=== PATIENT | female | born 1965 | race African-American/Black ===

== ENCOUNTER 2016-06-16 22:16 | Emergency (ER) | payer MEDICARE ==
[~2016-06-16] VITALS: Ht 162.6 cm; Wt 104.5 kg
[2016-06-16] MEDS ORDERED: cloNIDine 0.1 MG (CATAPRES) TAB PO ONE (23:25)
[2016-06-17] MEDS ORDERED: HYDROmorphone 1 MG/ML (DILAUDID) SYRINGE IM ONE (00:25)
[2016-06-17] MEDS ORDERED: ONDANSETRON 4 MG (ZOFRAN) ORAL DISSOLVE TAB PO ONE ×2 (01:10→02:05)
[2016-06-17] MEDS ORDERED: PROMETHAZINE 25 MG/ML (PHENERGAN) 1 ML VIAL IM ONE (01:30)
[2016-06-17] MEDS ORDERED: METOCLOPRAMIDE 10 MG/2 ML (REGLAN) VIAL IM ONE (02:35)
[2016-06-17 02:55] VITALS: BP 146/90
== END 2016-06-17 02:57 | disposition home or self-care (01) ==
LOC: ED 22:19
DX: T42.4X6A Underdosing of benzodiazepines, initial encounter (principal); T50.2X6A Underdosing of carbonic-anhydrase inhibitors, benzothiadiazides and other diuretics, initial encounter; I10 Essential (primary) hypertension; R51 Headache; M17.0 Bilateral primary osteoarthritis of knee; Z87.891 Personal history of nicotine dependence
CPT/HCPCS: 96372; 99282; A9270; J1170; J2550; J2765; 99283

== ENCOUNTER 2016-08-13 08:31 | Emergency (ER) | payer MEDICARE ==
[~2016-08-13] VITALS: Ht 162.6 cm; Wt 102.0 kg
[2016-08-13] MEDS ORDERED: DEXAMETHASONE 4 MG/ML (DECADRON) 5ml VIAL IM ONE (08:55)
[2016-08-13] MEDS ORDERED: ALBUTEROL/IPRATROPIUM 3MG-0.5MG/3ML (DUONEB) NEB VIAL INH ONE (08:55)
--- NOTE | 2016-08-13 09:09 | NUR ---
pt states has no idea what meds she takes. whatever is on our list is correct per pt
[2016-08-13 10:32] VITALS: BP 159/95
== END 2016-08-13 10:34 | disposition home or self-care (01) ==
LOC: ED 08:32
DX: J45.901 Unspecified asthma with (acute) exacerbation (principal)
CPT/HCPCS: 93005; 94640; 96372; 99284; J1100; 99283

== ENCOUNTER 2016-08-31 20:44 | Emergency (ER) | payer MEDICARE ==
[~2016-08-31] VITALS: Ht 162.6 cm; Wt 104.5 kg
[~2016-08-31 20:44] MED LIST: AC325T PO; ASP81CT PO; CALC300T10 PO; CPR500T PO; DOCU100C8 PO; ESOM20CA PO; FLUT16SP NSEACH; FRSM20T PO; HCT25T PO; HYDR1POW18 MC; LORA-404 PO; LORA0.5T PO; LORA1TAB PO; LOSA100T8 PO; MAG30ORA PO; MAGN400O7 PO; METO50TA7 PO; NTR.4SL SL; OMEP20TA PO; OMEP20TA33 PO; POLY17PO2 PO; PRED20TA PO; TRM50T PO; bp med
[2016-08-31] MEDS ORDERED: LORazepam 2 MG/ML (ATIVAN) 1 ML VIAL IV ONE (21:20)
[2016-08-31] MEDS ORDERED: SODIUM CHLORIDE FLUSH 3 ML SYR IV PRN (21:20)
[2016-08-31] MEDS ORDERED: SODIUM CHLORIDE FLUSH 10 ML SYR IV PRN (21:20)
[2016-08-31] MEDS ORDERED: ONDANSETRON 2 MG/ML (Z0FRAN) 2 ML VIAL IV ONE ×2 (21:20→22:25)
[2016-08-31 21:32] LABS: BASOPHILS % (AUTO) 0 % (0-2); EOSINOPHILS # (AUTO) 0.5 10^3uL; EOSINOPHILS % (AUTO) 5 % (0-4); LYMPHOCYTES # (AUTO) 3.5 X10^3; MEAN CORPUSCULAR HEMOGLOBIN 28.6 PG (26.0-34.0); MEAN CORPUSCULAR HGB CONC 32.7 g/dL (31.0-37.0); MEAN CORPUSCULAR VOLUME 88 FL (80-100); MEAN PLATELET VOLUME 10.5 FL (6.0-9.5); MONOCYTES # (AUTO) 0.7 X10^3; MONOCYTES % (AUTO) 7 % (3-11); NEUTROPHILS # (AUTO) 5.3 X10^3; NEUTROPHILS % (AUTO) 53 % (51-67); PLATELET COUNT 267 10^3uL (150-450); WHITE BLOOD COUNT 10.11 10^3uL (4.0-11.0)
[2016-08-31 21:41] LABS: ALBUMIN 4.3 g/dL (3.4-5.0); ALKALINE PHOSPHATASE 90 U/L (38-126); ANION GAP 16.4 MEQ/L (3-15); BUN/CREATININE RATIO 18 (10-20); TOTAL PROTEIN 7.8 g/dL (6.4-8.5)
--- NOTE | 2016-08-31 22:19 | NUR ---
Pt complaints of some restless legs, Dr. Warren was notified, RN went back to notify pt that Dr. Warren feels like the Ativan that pt was given should help with her legs.
[2016-08-31] MEDS ORDERED: KETOROLAC 30 MG/ML (TORADOL) 1 ML VIAL IV ONE (22:25)
[2016-08-31] MEDS ORDERED: HYDROmorphone 1 MG/ML (DILAUDID) SYRINGE IV ONE (22:25)
[2016-08-31] MEDS ORDERED: PROMETHAZINE 25 MG/ML (PHENERGAN) 1 ML VIAL IM ONE (23:50)
[2016-09-01] MEDS ORDERED: LORA-404 PO (01:22)
[2016-09-01] MEDS ORDERED: ED- LORAZEPAM 0.5 MG (ATIVAN) 6 TABLETS/BTL PO ONE (01:25)
[2016-09-01 02:03] VITALS: BP 135/79
--- NOTE | 2016-09-01 07:44 | Diagnostic Imaging Report ---
PROCEDURE: CT angiography of the chest with contrast. TECHNIQUE: Multiple contiguous axial images were obtained through the chest after uneventful bolus administration of intravenous contrast. Reconstructed CTA MIP acquisitions were also performed. INDICATION: Chest pressure and arm pain. COMPARISON: 05/12/2016 FINDINGS: Vasculature: No pulmonary emboli. No CT evidence of pulmonary hypertension or right ventricular strain. Thoracic aorta is normal in caliber. No aortic dissection or pseudoaneurysm. Heart and mediastinum: Visualized thyroid is normal. No supraclavicular, axillary, or intra-thoracic lymphadenopathy. The heart is normal in size without pericardial effusion. Small hiatus hernia. Pleura: No pleural effusion or pneumothorax. Lungs and airway: No endoluminal lesion in the trachea or central bronchi. No pulmonary mass, nodule or consolidation. Patchy subsegmental atelectasis in the left lung base. Upper abdomen: Allowing for the phase of contrast, no acute abnormality in the upper abdomen is seen. Musculoskeletal: No concerning osseous lesion. IMPRESSION: 1. No acute cardiopulmonary process. Specifically, no pulmonary emboli or acute aortic syndrome. 2. No pulmonic consolidation or mass. 3. No intrathoracic lymphadenopathy. 4. Findings are in agreement with the preliminary report. Dictated by: Dictated on workstation # [id number]
--- NOTE | 2016-09-01 07:48 | Diagnostic Imaging Report ---
CHEST 1 VIEW, AP/PA ONLY* Indication: Chest pain. Comparison: CTA chest performed subsequently and portable chest of 05/12/2016. Findings: No focal airspace disease in the visualized lungs. Please note that the posterior lower lobes are poorly evaluated by portable radiography. No pleural effusion or pneumothorax. Normal cardiomediastinal silhouette. Impression: No acute cardiopulmonary process by portable radiography. Dictated by: Dictated on workstation # [id number]
== END 2016-09-01 02:02 | disposition home or self-care (01) ==
LOC: ED 20:45
DX: M94.0 Chondrocostal junction syndrome [Tietze] (principal); R07.89 Other chest pain; F41.9 Anxiety disorder, unspecified
CPT/HCPCS: 36415; 71010; 71275; 80053; 84484; 85025; 85379; 93005; 96361; 96372; 96374; 96375; 96376; 99285; A9270; J1170; J1885; J2060; J2405; J2550; J7030; Q9967; 93010

== ENCOUNTER 2016-09-04 06:28 | Emergency (ER) | payer MEDICARE ==
[~2016-09-04] VITALS: Ht 162.6 cm; Wt 109.0 kg
[~2016-09-04 06:28] MED LIST changes: -ALBU8.5H2 IH; -DOXY100C2 PO; -PRD50T PO
[2016-09-04] MEDS ORDERED: methylPREDNISolone 125 MG (Solu-MEDROL) VIAL IV STA (06:50)
[2016-09-04] MEDS ORDERED: ALBUTEROL/IPRATROPIUM 3MG-0.5MG/3ML (DUONEB) NEB VIAL INH ONE (06:50)
[2016-09-04] MEDS ORDERED: ALBU8.5H2 IH (06:52)
[2016-09-04] MEDS: SODIUM CHLORIDE FLUSH 10 ML SYR IV PRN ×2 (06:57→07:47)
--- NOTE | 2016-09-04 07:03 | NUR ---
REPORT TO KATIA Warren AND SHE ACCEPTED CARE
[2016-09-04] MEDS ORDERED: KETOROLAC 30 MG/ML (TORADOL) 1 ML VIAL IV ONE (07:05)
--- NOTE | 2016-09-04 07:39 | NUR ---
PT [facility]. CL
[2016-09-04] MEDS ORDERED: ALBUTEROL 0.083% NEB SOLUTION 2.5 MG/3 ML VIAL INH ONE (07:40)
--- NOTE | 2016-09-04 07:41 | Diagnostic Imaging Report ---
INDICATION: Cough. Comparison with 08/31/2016. FINDINGS: Examination of the chest in the PA and lateral projections fails to reveal evidence of active parenchymal pathology or pleural effusion. The cardiac silhouette is normal. IMPRESSION: Negative chest. No significant change since previous exam. Dictated by: Dictated on workstation # [id number]
[2016-09-04] MEDS ORDERED: DOXY100C2 PO (08:21)
[2016-09-04] MEDS ORDERED: PRD50T PO (08:21)
[2016-09-04 20:36] VITALS: BP 154/80
== END 2016-09-04 08:48 | disposition home or self-care (01) ==
LOC: EDUNIT# 06:28 → ED 06:31
DX: J20.9 Acute bronchitis, unspecified (principal); J44.1 Chronic obstructive pulmonary disease with (acute) exacerbation
CPT/HCPCS: 71020; 94640; 96374; 96375; 99283; J1885; J2930; J7613

== ENCOUNTER → 2016-09-04 | Outpatient (CLI) | payer MEDICARE ==
[~2016-09-04] MED LIST changes: +ALBU8.5H2 IH; +DOXY100C2 PO; +PRD50T PO
== END ==
LOC: EMS 06:15
PROVIDERS: ATTEND Emergency Medicine
DX: R06.00 Dyspnea, unspecified (principal); J45.909 Unspecified asthma, uncomplicated

== ENCOUNTER 2016-10-07 17:40 | Emergency (ER) | payer MEDICARE ==
[~2016-10-07] VITALS: Ht 162.6 cm; Wt 108.0 kg
[~2016-10-07 17:40] MED LIST changes: +ALBU8.5H2 IH; +DOXY100C2 PO; +PRD50T PO
--- OUTSIDE RECORDS SUMMARY | 2016-10-07 17:45 | XMS REPORT | Continuity of Care Document ---
Author Author [facility] Address Unknown Phone Unavailable Support Name Relationship Address Phone ARVEN HUNT MD Caregiver [address] [place], [place] [address] JACQUELIN ORTIZ MD Caregiver [address] [place] [address] HILARY HARRIS Next Of Kin [address] [place] [address] Insurance Providers Payer Name Policy Number Subscriber Name Relationship Medicare A And B [id number] Paco Cardoso 16 Self / Same As Patient Advance Directives Directive Response Recorded Date/Time Advanced Directives Yes 09/04/16 6:33am Type Durable Power of [employer] Developer 09/04/16 6:33am Chief Complaint and Reason for Visit Chief Complaint Respiratory Complaint Reason for Visit Chronic obstructive pulmonary disease Problems Active Problems Medical Problem Onset Date Status Anxiety ~03/12/2016 Resolved Asthma Unknown Resolved Bronchitis Unknown Resolved Chest pain ~03/12/2016 Resolved Chronic obstructive pulmonary disease 09/04/2016 Acute Costochondritis, acute ~08/31/2016 Acute Degenerative arthritis of knee, bilateral ~06/16/2016 Acute GERD (gastroesophageal reflux disease) ~03/12/2016 Chronic HTN (hypertension) ~01/23/2016 Resolved Headache ~06/16/2016 Acute Hx of medication noncompliance Unknown Chronic Hypertension Unknown Acute Non compliance w medication regimen Unknown Chronic Medications Current Home Medications Medication Dose Units Route Directions Days/Qty Instructions Start Date Hydrochlorothiazide 25 Mg 25 Mg ORAL Daily 30 12/09/15 Losartan Potassium (Cozaar) 100 Mg 100 Mg ORAL Daily 30 12/09/15 Nitroglycerin (Nitrostat) 0.4 Mg 0.4 Mg SUBLINGUAL As Needed as needed for Chest Pain 15 12/09/15 Lorazepam 0.5 Mg 0.5 Mg ORAL Bedtime 01/23/16 Omeprazole Magnesium 20 Mg 20 Mg ORAL Daily 30 03/12/16 Lorazepam 0.5 Mg 0.5 Mg ORAL Every 8HRS for Anxiety 15 06/17/16 Albuterol Sulfate 8.5 Gm 8.5 Gm RESPIRATORY (INHALATION) As Needed 09/04/16 Doxycycline Hyclate 100 Mg 100 Mg ORAL Twice A Day 14 09/04/16 Prednisone 50 Mg 50 Mg ORAL Daily 4 09/04/16 Past Home Medications Medication Directions Ordered Status [Bp Med] , Unknown Dose Daily 12/08/15 Discontinued Furosemide 20 Mg Tab, 20 Mg Oral Twice A Day 12/08/15 Discontinued Lorazepam 1 Mg Tablet, 1 Mg Oral Bedtime 12/08/15 Discontinued Hydrochlorothiazide 25 Mg Tablet, 25 Mg Oral Daily 12/09/15 Discontinued Esomeprazole Magnesium 20 Mg Capsule., 20 Mg Oral Daily@0700 12/09/15 Discontinued Losartan Potassium (Cozaar) 100 Mg Tablet, 100 Mg Oral Daily 12/09/15 Discontinued Tramadol Hcl (Ultram) 50 Mg Tablet, 50 Mg Oral Three Times A Day 12/09/15 Discontinued Aspirin 81 Mg Tab.chew, 81 Mg Oral Daily 12/09/15 Discontinued Fluticasone Propionate 16 Gm Naspr, 1 [place] Each Nostril Bedtime 12/09/15 Discontinued Aspirin 81 Mg Tab.chew, 81 Mg Oral Daily 12/09/15 Discontinued Metoprolol Succinate 50 Mg Tab, 50 Mg Oral Daily 12/09/15 Discontinued Acetaminophen (Tylenol) 325 Mg Tablet, 650 Mg Oral Every 6 Hours as needed for Pain 12/09/15 Discontinued Calcium Carbonate 300 Mg Tab.chew, 600 Mg Oral Every 1 Hour as needed for Dyspepsia 12/09/15 Discontinued Mag Hydrox/Al Hydrox/Simeth 30 Ml Oral.susp, 30 Ml Oral Every 6 Hours as needed for Dyspepsia 12/09/15 Discontinued Docusate Sodium 100 Mg Capsule, 100 Mg Oral Twice A Day as needed for Constipation 12/09/15 Discontinued Magnesium Hydroxide 400 Mg/5 Ml Oral.susp, 30 Ml Oral Daily as needed for Constipation 12/09/15 Discontinued Polyethylene Glycol 3350 17 Gm Powd.pack, 17 Gm Oral Daily as needed for Constipation 12/09/15 Discontinued Omeprazole 20 Mg Tablet., 20 Mg Oral Daily 12/09/15 Discontinued Lorazepam 0.5 Mg Tablet, 0.5 Mg Oral As Directed 01/23/16 Discontinued Hydrochlorothiazide 25 Gm Powder, 25 Gm Miscell Once 01/23/16 Discontinued Losartan Potassium (Cozaar) 100 Mg Tablet, 100 Mg Oral As Directed 01/23/16 Discontinued Losartan Potassium (Cozaar) 100 Mg Tablet, 100 Mg Oral Daily 03/12/16 Discontinued Hydrochlorothiazide 25 Mg Tablet, 25 Mg Oral Daily 03/12/16 Discontinued Lorazepam 0.5 Mg Tablet, 0.5 Mg Oral Bedtime 03/12/16 Discontinued Ciprofloxacin 500 Mg Tablet, 500 Mg Oral Twice A Day for Infection 05/13/16 Discontinued Prednisone 20 Mg Tablet, 20 Mg Oral As Directed 05/13/16 Discontinued Losartan Potassium (Cozaar) 100 Mg Tablet, 100 Mg Oral Daily 06/17/16 Discontinued Omeprazole 20 Mg Tablet.dr, 20 Mg Oral Daily 06/17/16 Discontinued Prednisone 20 Mg Tablet, 20 Mg Oral Twice A Day 08/13/16 Discontinued Losartan Potassium (Cozaar) 100 Mg Tablet, 100 Mg Oral Daily 08/13/16 Discontinued Lorazepam 0.5 Mg Tablet, 0.5 Mg Oral Every 8HRS for Anxiety 09/01/16 Discontinued Social History Social History Problem Response Recorded Date/Time Onset Date Status Exposure to occupational hazards No 12/08/2015 10:29pm Query Response Start Date Stop Date Smoking Status Former smoker Hospital Discharge Instructions No hospital discharge instructions. Plan of Care Discharge Date 09/04/16 8:48am Disposition 01 HOME OR SELF-CARE Condition at Discharge Stable Instructions/Education Provided Exacerbation of COPD (DC) Prescriptions See Medication Section Referrals SHAYNA CARTER MD - Additional Instructions/Education Drink plenty of fluids, rest. Take your medications as previously prescribed. You may repeat your nebulized treatment [id number] if needed but do not take more than two in a row. Return if symptoms worsen, if new symptoms develop, or for any other concerns. Your prescriptions were sent to [facility]. Some of your test results may not be complete prior to your leaving the Emergency Department. The Emergency Department is not authorized to give test results over the phone. Please contact the doctor's office listed in this packet of information for your final results. Follow up with your primary care physician or return to the Emergency Department for worsening or worrisome symptoms. * Emergency Department phone number: [phone], x [phone]* MEDICAL RECORD If you need copies of your X-rays, call [phone]. If you need copies of your medical record, including lab results, a signed authorization for release of records will be required. A telephone call for release of Health Information is not allowed. BILLING Billing can sometimes be confusing and frustrating. To help avoid confusion in the future, please take a moment to acquaint yourself with the billing parties for services. [employer] Emergency Room Services [facility] Physician Services [facility] X-rays [facility] Patients will receive bills for services from the appropriate provider. If you have any questions about your [facility] bill, our staff will be happy to assist you. Please call [phone], and ask for the billing department. THANK YOU for choosing [facility] as your emergency care provider! Care Plan and Goals ~~Discharge Care Plan~~ Problem: Breathing difficulty Goal: Able to breathe without shortness of air and perform usual activities. Instructions: Take medication(s) as directed. Follow physician discharge instructions. Follow up with primary care physician as directed. Use inhalers as needed. Functional Status No functional status results. Allergies, Adverse Reactions, Alerts Allergen Type Severity Reaction Status Last Updated Hydrocodone Allergy Unknown Active 09/04/16 Oxycodone Allergy Unknown Active 09/04/16 Meperidine Allergy Unknown Active 09/04/16 Immunizations No immunization records. Vital Signs Acute Vital Signs Vital Response Date/Time Temperature (Fahrenheit) 98 09/04/2016 6:33am Pulse 82 bpm 09/04/2016 8:36pm Respirations 16 09/04/2016 8:36pm Height 5 ft 4 in Weight 240 lb Body Mass Index 41.0 kg/m^2 Results Pending Laboratory Results Test Name Collection Date/Time Procedures Procedure Status Date Provider(s) ELECTROCARDIOGRAM TRACING Completed 03/28/17 AIRWAY INHALATION TREATMENT Completed 08/13/16 THER/PROPH/DIAG INJ SC/IM Completed 08/13/16 EMERGENCY DEPT VISIT Completed 08/13/16 Completed 08/13/16 Encounters Encounter Location Arrival/Admit Date Discharge/Depart Date Attending Provider Departed Emergency Room [facility] 09/04/16 6:31am 09/04/16 8:48am JACQUELIN ORTIZ MD Registered Clinic [facility] 09/04/16 6:15am RAVEN HUNT MD Departed Emergency Room [facility] 08/31/16 8:45pm 09/01/16 2:02am PRADEEP HERNÁNDEZ MD Departed Emergency Room [facility] 08/13/16 8:32am 08/13/16 10:34am CHELLY JACINTO MD Recent Diagnosis
--- NOTE | 2016-10-07 18:00 | NUR ---
Patient report has now been received from Triage Nurse. Pt care assumed by this nurse.
[2016-10-07] MEDS ORDERED: ALBUTEROL/IPRATROPIUM 3MG-0.5MG/3ML (DUONEB) NEB VIAL INH ONE (18:15)
--- NOTE | 2016-10-07 18:30 | NUR ---
Respiratiory Therapist here to do Nebulizer treatment.
[2016-10-07] MEDS ORDERED: HCT25T PO (18:47)
[2016-10-07] MEDS ORDERED: LORA0.5T PO (18:47)
[2016-10-07] MEDS ORDERED: LOSA100T8 PO (18:47)
[2016-10-07] MEDS ORDERED: ALBU8.5H2 IH (18:47)
[2016-10-07] MEDS ORDERED: LORazepam 0.5 MG (ATIVAN) TABLET PO ONE (18:50)
[2016-10-07] MEDS ORDERED: DEXAMETHASONE 10 MG/ML (DECADRON) VIAL IM ONE (18:50)
[2016-10-07] MEDS ORDERED: LORazepam 1 MG (ATIVAN) TABLET PO ONE (19:10)
[2016-10-07 22:12] VITALS: BP 131/101
== END 2016-10-07 19:25 | disposition home or self-care (01) ==
LOC: ED 17:42
DX: J45.909 Unspecified asthma, uncomplicated (principal); I10 Essential (primary) hypertension; F41.9 Anxiety disorder, unspecified
CPT/HCPCS: 94640; 96372; 99283; A9270; J1100

== ENCOUNTER 2016-10-11 06:53 | Emergency (ER) | payer MEDICARE ==
[~2016-10-11] VITALS: Ht 162.6 cm; Wt 235.0 kg
[2016-10-11] MEDS ORDERED: predniSONE 20 MG (DELTASONE) TABLET PO ONE (07:30)
[2016-10-11] MEDS ORDERED: ORPHENADRINE 60 MG/2 ML (NORFLEX) AMP IM ONE (07:30)
[2016-10-11] MEDS ORDERED: KETOROLAC 60 MG/2 ML (TORADOL) VIAL IM ONE (07:30)
[2016-10-11] MEDS ORDERED: ALBUTEROL 0.083% NEB SOLUTION 2.5 MG/3 ML VIAL INH ONE (07:30)
[2016-10-11] MEDS ORDERED: PRED20TA PO (07:51)
[2016-10-11] MEDS ORDERED: TRM50T PO (07:51)
[2016-10-11] MEDS ORDERED: CYCL10TA45 PO (07:51)
[2016-10-11] MEDS ORDERED: ALBU2.5V4 INH (08:32)
[2016-10-11 08:52] VITALS: BP 164/115
== END 2016-10-11 08:54 | disposition home or self-care (01) ==
LOC: ED 06:55
DX: S39.012A Strain of muscle, fascia and tendon of lower back, initial encounter (principal); W18.39XA Other fall on same level, initial encounter; Y92.410 Unspecified street and highway as the place of occurrence of the external cause; Z87.891 Personal history of nicotine dependence; J45.901 Unspecified asthma with (acute) exacerbation
CPT/HCPCS: 94640; 96372; 99282; A9270; J1885; J2360; J7613; 99283